=== PATIENT | male | born 1975 | race Caucasian/White ===

== ENCOUNTER 2024-09-01 08:59 | Day surgery (SDC) | payer OTHER ==
[~2024-09-01] VITALS: Ht 165.1 cm; Wt 80.9 kg
[~2024-09-01 08:59] MED LIST: AMPDEX30CR; Lactated Ringer's 1,000 ML IV ONE; Norco 10-325 T1 EACH PO; PANTOPRAZOLE SO40 M1 PO; propofoL 50 ML IV ONE
[2024-09-01] MEDS ORDERED: Lactated Ringer's 1,000 ML IV ONE ×2 (10:01→11:30)
[2024-09-01] MEDS ORDERED: propofoL 50 ML IV ONE (11:13)
== END 2024-09-01 12:03 | disposition home or self-care (01) ==
LOC: ORSCSDS 08:59
PROVIDERS: Internal Medicine Gastroenterology
PROC: 0DB68ZX Excision of Stomach, Via Natural or Artificial Opening Endoscopic, Diagnostic (ICD-10-PCS; principal; 2024-09-01 10:15)
PROC: 0DB98ZX Excision of Duodenum, Via Natural or Artificial Opening Endoscopic, Diagnostic (ICD-10-PCS; principal; 2024-09-01 10:15)
PROC: 0DJD8ZZ Inspection of Lower Intestinal Tract, Via Natural or Artificial Opening Endoscopic (ICD-10-PCS; principal; 2024-09-01 10:15)
DX: K21.9 Gastro-esophageal reflux disease without esophagitis (principal); R10.13 Epigastric pain; R10.32 Left lower quadrant pain; R14.0 Abdominal distension (gaseous); K62.5 Hemorrhage of anus and rectum; K64.4 Residual hemorrhoidal skin tags; F90.9 Attention-deficit hyperactivity disorder, unspecified type; E78.5 Hyperlipidemia, unspecified; Z79.899 Other long term (current) drug therapy; F17.220 Nicotine dependence, chewing tobacco, uncomplicated
CPT/HCPCS: 88305; 88342; J2704; J7120